=== PATIENT | male | born 1955 | race Caucasian/White ===

== ENCOUNTER → 2018-08-30 | Outpatient (CLI) | payer OTHER ==
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
== END ==
LOC: DL.CT 13:33
PROVIDERS: ATTEND Neurological Surgery
DX: S22.009S Unspecified fracture of unspecified thoracic vertebra, sequela (principal); Z98.1 Arthrodesis status
CPT/HCPCS: 72128